=== PATIENT | male | born 1950 | race Caucasian/White ===

== ENCOUNTER 2019-02-25 05:18 | Observation (INO) ==
[2019-02-25] MEDS ORDERED: Acetaminophen 325 MG TABLET PO PRN (08:38)
[2019-02-25] MEDS ORDERED: *HR* HYDROcodone/Acet 5/325 mg TABLET PO PRN (08:38)
[2019-02-25] MEDS ORDERED: Ondansetron 4 MG/2 ML VIAL IVP PRN (08:38)
[2019-02-25] MEDS ORDERED: Naloxone 0.4 MG/ML INJ IVP PRN (08:38)
[2019-02-25] MEDS ORDERED: D5% in Water 1,000 ML IVC PRN (08:47)
[2019-02-25] MEDS ORDERED: *HR* Dextrose 50 % in Water (Syg) 50 ML SYRINGE IVP PRN (08:47)
[2019-02-25] MEDS ORDERED: Dextrose Gel 15 GM/37.5 ML TUBE PO PRN ×2 (08:47)
[2019-02-25 09:40] LABS: Basophils # 0.1 K/mcL (0.0-0.2); Basophils % 0.3 %; Eosinophils # 0.1 K/mcL (0.0-0.6); Eosinophils % 0.4 %; Hematocrit 30.4 % (37.5-50.1); Hemoglobin 10.3 g/dL (12.9-16.9); Immature Granulocytes % 0.6 % (0-4); Lymphocytes # 1.5 K/mcL (0.6-4.6); Lymphocytes % 7.1 %; Mean Corpuscular HGB Conc 33.9 g/dL (31.6-35.5); Mean Corpuscular Hemoglobin 30.7 pg (28.0-33.3); Mean Corpuscular Volume 90.5 fL (83.0-100.0); Mean Platelet Volume 9.9 fL (9.4-12.4); Monocytes # 2.1 K/mcL (0.0-1.3); Monocytes % 9.8 %; Neutrophils # 17.4 K/mcL (1.6-8.9); Platelet Count 309 K/mcL (140-400); Red Blood Count 3.36 M/mcL (4.19-5.50); Red Cell Distribution Width 12.5 % (11.5-14.5); Segmented Neutrophils % 81.8 %; White Blood Count 21.3 K/mcL (4.3-11.1)
[2019-02-25 10:00] LABS: Albumin 3.4 g/dL (3.5-5.7); Bilirubin,Total 0.3 mg/dL (0.3-1.0); Calcium 8.9 mg/dL (8.6-10.3); Globulin 3.5 g/dL (2.4-3.5); Potassium 4.7 mEq/L (3.5-5.1); Total Protein 6.9 g/dL (6.4-8.9)
[2019-02-25] MEDS: Pantoprazole 40 MG VIAL IVP SCH ×2 (11:27→18:01)
[2019-02-25] MEDS: 0.9 % Sodium Chloride 1,000 ML IVC SCH (11:27)
[2019-02-25] MEDS: Insulin LISPRO 300 UNITS/3 ML VIAL SQ SCH ×2 (13:22→17:56)
[2019-02-25 15:38] LABS: Hematocrit 29.4 % (37.5-50.1); Hemoglobin 10.1 g/dL (12.9-16.9)
[2019-02-25] MEDS ORDERED: MetroNIDAZOLE 500 MG/100 ML 500 MG/100 ML BAG IVPB SCH (16:00)
[2019-02-25] MEDS ORDERED: Lidocaine Jelly 6ml 1 APPL/6 ML JEL.PF.APP ONE (20:05)
[2019-02-25] MEDS ORDERED: *HR* HYDROmorphone (PF) 1 MG/ML SYRINGE IVP PRN (20:10)
[2019-02-25] MEDS ORDERED: *HR* OxyCODONE Immed Rel 5 MG TABLET PO PRN (20:10)
[2019-02-25] MEDS ORDERED: *HR* FentaNYL (PF) 100 MCG/2 ML VIAL ONE (20:13)
[2019-02-25] MEDS ORDERED: *HR* Midazolam HCl 2 MG/2 ML VIAL ONE (20:13)
[2019-02-25] MEDS ORDERED: *HR* Succinylcholine 200 MG/10 ML VIAL IVP ONE (20:13)
[2019-02-25] MEDS ORDERED: *HR* Propofol 200 MG/20 ML VIAL IVP ONE (20:13)
[2019-02-25] MEDS ORDERED: Lidocaine -MPF 2% 2 ML VIAL ONE (20:13)
[2019-02-25] MEDS ORDERED: *HR* Cisatracurium 10 MG/5 ML VIAL IV ONE (20:14)
[2019-02-25] MEDS ORDERED: Ondansetron 4 MG/2 ML VIAL ONE (20:56)
[2019-02-25] MEDS ORDERED: Dexamethasone 4 MG/ML VIAL ONE (20:56)
[2019-02-25] MEDS ORDERED: Insulin LISPRO 300 UNITS/3 ML VIAL SQ SCH (21:00)
[2019-02-26] MEDS ORDERED: Clindamycin 600 MG/50 ML 600 MG/50 ML IV.SOLN IVPB SCH
[2019-02-26] MEDS: 0.9 % Sodium Chloride 1,000 ML IVC SCH (00:35)
[2019-02-26] MEDS: Piperacillin/Tazobactam 3.375 GM in 0.9 % Sodium Chloride Mini Bag 100 ML IVPB SCH ×2 (00:35→10:27)
[2019-02-26] MEDS: Pantoprazole 40 MG VIAL IVP SCH (06:32)
[2019-02-26 08:14] VITALS: BP 163/78
[2019-02-26 09:34] LABS: Basophils % 0.1 %; Hematocrit 31.3 % (37.5-50.1); Hemoglobin 10.5 g/dL (12.9-16.9); Lymphocytes # 0.6 K/mcL (0.6-4.6); Lymphocytes % 3.5 %; Mean Corpuscular HGB Conc 33.5 g/dL (31.6-35.5); Mean Corpuscular Hemoglobin 30.5 pg (28.0-33.3); Mean Platelet Volume 9.6 fL (9.4-12.4); Monocytes # 0.6 K/mcL (0.0-1.3); Monocytes % 3.8 %; Neutrophils # 14.8 K/mcL (1.6-8.9); Platelet Count 330 K/mcL (140-400); Red Blood Count 3.44 M/mcL (4.19-5.50); Red Cell Distribution Width 12.6 % (11.5-14.5); Segmented Neutrophils % 91.6 %; White Blood Count 16.2 K/mcL (4.3-11.1)
[2019-02-26 09:39] LABS: INR 1.3; Prothrombin Time 14.3 Seconds (9.4-12.1)
[2019-02-26 09:52] LABS: Albumin 3.2 g/dL (3.5-5.7); Albumin/Globulin Ratio 0.9 (1.1-2.2); Bilirubin,Total 0.4 mg/dL (0.3-1.0); Calcium 8.6 mg/dL (8.6-10.3); Globulin 3.4 g/dL (2.4-3.5); Potassium 5.1 mEq/L (3.5-5.1); Total Protein 6.6 g/dL (6.4-8.9)
[2019-02-26] MEDS: Insulin LISPRO 300 UNITS/3 ML VIAL SQ SCH (10:26)
[2019-02-26] MEDS ORDERED: Aminoglycoside Consult 1 EACH MC ONE (13:19)
[2019-02-26] MEDS ORDERED: Vancomycin 500 MG in 0.9 % Sodium Chloride Mini Bag 100 ML IVPB SCH (14:00)
== END 2019-02-26 13:20 | disposition home or self-care (01) ==
LOC: 3ANU → SUATTDRO 07:40
PROVIDERS: ADMIT Internal Medicine; ATTEND Internal Medicine

== ENCOUNTER 2021-05-04 11:50 | Inpatient (IN) ==
[2021-05-04] MEDS ORDERED: Pantoprazole 80 MG in 0.9 % Sodium Chloride 50 ML IVPB ONE (15:40)
[2021-05-04] MEDS ORDERED: 0.9 % Sodium Chloride 1,000 ML IVC SCH (15:45)
[2021-05-04 15:55] LABS: Bilirubin,Urine Negative (Negative); Blood,Urine Negative (Negative); Clarity,Urine Clear (Clear); Color,Urine Light-Yellow (Yellow); Glucose,Urine (UA) Normal (Normal); Ketones,Urine Negative (Negative); Leukocyte Esterase,Urine Negative (Negative); Mucus,Urine Few per lpf (None-Few); Nitrite,Urine Negative (Negative); Protein,Urine 200 mg/dL (Neg-Trace); RBC,Urine 0-3 per hpf (0-3); Specific Gravity,Urine 1.014 (1.010-1.025); Urobilinogen,Urine Normal (Normal); WBC,Urine 0-3 per hpf (0-3)
[2021-05-04 16:17] LABS: Basophils # 0.1 K/mcL (0.0-0.2); Basophils % 0.8 %; Eosinophils # 0.2 K/mcL (0.0-0.6); Eosinophils % 1.5 %; Hematocrit 33.1 % (37.5-50.1); Hemoglobin 10.8 g/dL (12.9-16.9); Immature Granulocytes % 0.2 % (0-4); Lymphocytes # 2.1 K/mcL (0.6-4.6); Lymphocytes % 20.8 %; Mean Corpuscular HGB Conc 32.6 g/dL (31.6-35.5); Mean Corpuscular Hemoglobin 30.3 pg (28.0-33.3); Mean Corpuscular Volume 92.7 fL (83.0-100.0); Monocytes % 9.5 %; Neutrophils # 6.7 K/mcL (1.6-8.9); Platelet Count 274 K/mcL (140-400); Red Blood Count 3.57 M/mcL (4.19-5.50); Red Cell Distribution Width 12.9 % (11.5-14.5); Segmented Neutrophils % 67.2 %
[2021-05-04 17:24] LABS: Calcium 9.1 mg/dL (8.6-10.3)
[2021-05-04] MEDS ORDERED: Ondansetron 4 MG/2 ML VIAL IVP PRN (19:41)
[2021-05-04] MEDS ORDERED: Acetaminophen 325 MG TABLET PO PRN (19:41)
[2021-05-04] MEDS ORDERED: Naloxone 0.4 MG/ML INJ IVP PRN (19:41)
[2021-05-04] MEDS ORDERED: Melatonin 3 MG TABLET PO PRN (19:41)
[2021-05-04] MEDS ORDERED: *HR* Dextrose 50 % in Water (Syg) 50 ML SYRINGE IVP PRN (20:18)
[2021-05-04] MEDS ORDERED: D5% in Water 1,000 ML IVC PRN (20:18)
[2021-05-04] MEDS ORDERED: Dextrose Gel 15 GM/37.5 ML TUBE PO PRN ×2 (20:18)
[2021-05-05] MEDS ORDERED: Insulin LISPRO 300 UNITS/3 ML VIAL SUBQ SCH
[2021-05-05 05:05] LABS: Hematocrit 32.8 % (37.5-50.1); Hemoglobin 11.1 g/dL (12.9-16.9); Mean Corpuscular HGB Conc 33.8 g/dL (31.6-35.5); Mean Corpuscular Hemoglobin 31.3 pg (28.0-33.3); Mean Corpuscular Volume 92.4 fL (83.0-100.0); Mean Platelet Volume 10.1 fL (9.4-12.4); Platelet Count 260 K/mcL (140-400); Red Blood Count 3.55 M/mcL (4.19-5.50); Red Cell Distribution Width 12.9 % (11.5-14.5); White Blood Count 8.4 K/mcL (4.3-11.1)
[2021-05-05 05:26] LABS: Calcium 9.2 mg/dL (8.6-10.3); Potassium 4.8 mEq/L (3.5-5.1)
[2021-05-05] MEDS: carvediloL 6.25 MG TABLET PO SCH ×2 (07:34→17:40)
[2021-05-05] MEDS ORDERED: *HR* FentaNYL (PF) 100 MCG/2 ML VIAL ONE (12:06)
[2021-05-05] MEDS ORDERED: *HR* Midazolam HCl 5 MG/5 ML VIAL IVP ONE ×2 (12:08→16:19)
[2021-05-05] MEDS: Isosorbide MONOnitrate (24 HR) 30 MG TAB.ER.24H PO SCH (12:57)
[2021-05-05 14:32] LABS: Hematocrit 31.6 % (37.5-50.1); Hemoglobin 10.4 g/dL (12.9-16.9)
[2021-05-05] MEDS ORDERED: *HR* FentaNYL (PF) 100 MCG/2 ML VIAL IVP ONE (16:19)
[2021-05-05] MEDS ORDERED: Tetracaine/Benzocaine/Butamben 1 SPRAY AEROSOL MM ONE (16:24)
[2021-05-05] MEDS: NIFEdipine XL (24 HR) 60 MG TAB.ER.24 PO SCH (17:40)
[2021-05-05] MEDS: Pantoprazole 40 MG VIAL IVP SCH (17:41)
[2021-05-05] MEDS: Ringers Solution, Lactated 1,000 ML IVC SCH (17:52)
[2021-05-05 21:22] LABS: Hematocrit 29.1 % (37.5-50.1); Hemoglobin 9.6 g/dL (12.9-16.9)
[2021-05-05] MEDS ORDERED: *HR* LORazepam 2 MG/ML VIAL IVP ONE (22:03)
[2021-05-06] MEDS: Ringers Solution, Lactated 1,000 ML IVC SCH (06:18)
[2021-05-06] MEDS: carvediloL 6.25 MG TABLET PO SCH ×3 (06:21→17:52)
[2021-05-06] MEDS: NIFEdipine XL (24 HR) 60 MG TAB.ER.24 PO SCH ×2 (06:21→17:52)
[2021-05-06] MEDS: Pantoprazole 40 MG VIAL IVP SCH ×2 (06:33→17:52)
[2021-05-06] MEDS: Isosorbide MONOnitrate (24 HR) 30 MG TAB.ER.24H PO SCH (09:13)
[2021-05-06] MEDS: Insulin LISPRO 300 UNITS/3 ML VIAL SUBQ SCH ×3 (09:20→17:07)
[2021-05-06 10:25] LABS: Basophils # 0.1 K/mcL (0.0-0.2); Basophils % 1.1 %; Eosinophils # 0.1 K/mcL (0.0-0.6); Eosinophils % 1.4 %; Hematocrit 31.1 % (37.5-50.1); Hemoglobin 10.5 g/dL (12.9-16.9); Immature Granulocytes % 0.2 % (0-4); Lymphocytes # 1.5 K/mcL (0.6-4.6); Mean Corpuscular HGB Conc 33.8 g/dL (31.6-35.5); Mean Corpuscular Hemoglobin 30.5 pg (28.0-33.3); Mean Corpuscular Volume 90.4 fL (83.0-100.0); Mean Platelet Volume 10.1 fL (9.4-12.4); Monocytes # 0.7 K/mcL (0.0-1.3); Monocytes % 8.3 %; Neutrophils # 5.9 K/mcL (1.6-8.9); Platelet Count 265 K/mcL (140-400); Red Blood Count 3.44 M/mcL (4.19-5.50); Red Cell Distribution Width 12.9 % (11.5-14.5); White Blood Count 8.3 K/mcL (4.3-11.1)
[2021-05-06 10:34] LABS: INR 1.1
[2021-05-06 10:44] LABS: Calcium 8.9 mg/dL (8.6-10.3); Magnesium 1.6 mg/dL (1.6-2.6); Potassium 4.6 mEq/L (3.5-5.1)
[2021-05-06] MEDS: Thiamine (B-1) 100 MG TABLET PO SCH (12:45)
[2021-05-06 15:25] LABS: Estimated Average Glucose 157 mg/dl; Hemoglobin A1C 7.1 %
[2021-05-06] MEDS ORDERED: SODIUM CHLORIDE/NAHCO3/KCL/PEG 4,000 ML SOLN.RECON PO ONE (17:00)
[2021-05-06] MEDS ORDERED: Sodium Bicarbonate 50 MEQ in 0.45 % Sodium Chloride 1,000 ML IVC SCH (17:15)
[2021-05-06] MEDS ORDERED: Perflutren Lipid Microsphere 1.3 ML in 0.9 % Sodium Chloride 8.7 ML IVP PRN (17:26)
[2021-05-06 17:33] LABS: Folate > 22.3 ng/mL (3.0-16.0); Vitamin B12 480 pg/mL (250-1100)
[2021-05-06] MEDS: Aspirin Enteric Coated 81 MG Tablet PO SCH (18:47)
[2021-05-07 04:00] LABS: Hematocrit 31.2 % (37.5-50.1); Hemoglobin 10.4 g/dL (12.9-16.9); Mean Corpuscular HGB Conc 33.3 g/dL (31.6-35.5); Mean Corpuscular Hemoglobin 30.7 pg (28.0-33.3); Mean Platelet Volume 9.9 fL (9.4-12.4); Platelet Count 238 K/mcL (140-400); Red Blood Count 3.39 M/mcL (4.19-5.50); Red Cell Distribution Width 12.8 % (11.5-14.5); White Blood Count 9.1 K/mcL (4.3-11.1)
[2021-05-07 04:19] LABS: Calcium 8.6 mg/dL (8.6-10.3); Chol/HDL Ratio 4.8 (0-4.9)
[2021-05-07] MEDS: Pantoprazole 40 MG VIAL IVP SCH ×2 (05:27→05:28)
[2021-05-07] MEDS: carvediloL 6.25 MG TABLET PO SCH ×2 (07:20→17:59)
[2021-05-07] MEDS: Aspirin Enteric Coated 81 MG Tablet PO SCH (07:20)
[2021-05-07] MEDS: Isosorbide MONOnitrate (24 HR) 30 MG TAB.ER.24H PO SCH (07:20)
[2021-05-07] MEDS: Thiamine (B-1) 100 MG TABLET PO SCH (07:21)
[2021-05-07] MEDS: Insulin LISPRO 300 UNITS/3 ML VIAL SUBQ SCH ×3 (07:39→19:15)
[2021-05-07 10:36] LABS: Uric Acid 7.5 mg/dL (2.3-7.6)
[2021-05-07] MEDS: Cholecalciferol (D-3) 1,000 UNIT (25MCG) TABLET PO SCH (12:27)
[2021-05-07 15:23] LABS: Sodium, Urine 102.9 mEq/L
[2021-05-07] MEDS: NIFEdipine XL (24 HR) 60 MG TAB.ER.24 PO SCH (17:59)
[2021-05-08 05:33] LABS: Hematocrit 30.3 % (37.5-50.1); Hemoglobin 9.9 g/dL (12.9-16.9); Mean Corpuscular HGB Conc 32.7 g/dL (31.6-35.5); Mean Corpuscular Hemoglobin 29.8 pg (28.0-33.3); Mean Corpuscular Volume 91.3 fL (83.0-100.0); Mean Platelet Volume 10.1 fL (9.4-12.4); Platelet Count 239 K/mcL (140-400); Red Blood Count 3.32 M/mcL (4.19-5.50); Red Cell Distribution Width 12.6 % (11.5-14.5)
[2021-05-08 06:01] LABS: Calcium 8.5 mg/dL (8.6-10.3); Potassium 3.9 mEq/L (3.5-5.1)
[2021-05-08 07:57] VITALS: O2SAT 97
[2021-05-08] MEDS: Insulin LISPRO 300 UNITS/3 ML VIAL SUBQ SCH ×2 (09:51→12:19)
[2021-05-08] MEDS: Aspirin Enteric Coated 81 MG Tablet PO SCH (09:51)
[2021-05-08] MEDS: Isosorbide MONOnitrate (24 HR) 30 MG TAB.ER.24H PO SCH (09:51)
[2021-05-08] MEDS: Cholecalciferol (D-3) 1,000 UNIT (25MCG) TABLET PO SCH (09:51)
[2021-05-08] MEDS: Thiamine (B-1) 100 MG TABLET PO SCH (09:51)
[2021-05-08] MEDS: carvediloL 6.25 MG TABLET PO SCH (09:53)
[2021-05-08 12:30] VITALS: BP 152/70; PULSE 64; TEMP 98
== END 2021-05-08 15:28 | disposition home or self-care (01) | DRG 64 ==
LOC: EMEROOARM 11:50 → 3ANU 11:50 → SUATTDRO 19:18 → 3ANU 19:59
PROVIDERS: ADMIT Internal Medicine; ATTEND Internal Medicine
PROC: ENDOEBX (2021-05-05 15:30)